=== PATIENT | female | born 1970 | race Caucasian/White ===

== ENCOUNTER 2020-11-17 08:50 | Emergency (ER) | payer OTHER ==
[2020-11-17] MEDS ORDERED: Rocuronium Bromide 10 MG/ML (10ML VIAL) ONE (08:55)
[2020-11-17] MEDS ORDERED: EPINEPHrine 1 MG/10 ML Abboject SYRINGE ONE (10:09)
[2020-11-17] MEDS ORDERED: Atropine Sulfate 1 mg/10 ml Syringe ONE (10:09)
[2020-11-17] MEDS ORDERED: Sodium Bicarb 50 MEQ/50 ML Abboject 8.4% SYRINGE ONE (10:09)
[2020-11-17 10:41] LABS: SARS-CoV-2 NAA Rapid Test Not Detected (NotDetected)
== END 2020-11-17 09:10 | disposition expired ==
LOC: ERS 08:50 → EDBD 08:50 → ERS 09:10
DX: I46.9 Cardiac arrest, cause unspecified (principal)
CPT/HCPCS: 31605; 36556; 92950; 96374; 96375; J0171; J0461; U0002